=== PATIENT | female | born 1990 | race Caucasian/White ===

== ENCOUNTER 2022-08-05 09:20 | Outpatient (OUT) | payer OTHER, SELFPAY ==
[2022-08-05 09:56] LABS: Basophils Absolute Auto 0.1 10^3/uL (0.0-0.1); Basophils Percent Auto 0.9 % (0.2-2.0); Eosinophils Absolute Auto 0.2 10^3/uL (0.0-0.7); Eosinophils Percent Auto 3.6 % (0.9-7.0); Hematocrit 40.1 % (36.0-48.0); Hemoglobin 13.7 g/dL (12.0-16.0); Immature Granulocytes Abs Auto 0.01 10^3/uL (0.00-0.03); Immature Granulocytes Pct Auto 0.2 % (0.0-0.5); Lymphocytes Absolute Auto 1.6 10^3/uL (1.2-3.8); Lymphocytes Percent Auto 30.7 % (20.5-60.0); Mean Corpuscular HGB Conc 34.2 g/dL (29.9-35.2); Mean Corpuscular Hemoglobin 30.2 pg (26.7-34.0); Mean Corpuscular Volume 88.3 fL (81.0-99.0); Mean Platelet Volume 10.7 fL (9.5-13.5); Monocytes Absolute Auto 0.3 10^3/uL (0.3-0.8); Monocytes Percent Auto 5.7 % (1.7-12.0); Neutrophils Absolute Auto 3.1 10^3/uL (1.4-6.5); Neutrophils Percent Auto 58.9 % (43.0-75.0); Platelet Count 236 10^3/uL (150-450); Red Blood Count 4.54 10^6/uL (4.20-5.40); Red Cell Distribution Width 12.1 % (11.0-15.0); White Blood Count 5.3 10^3/uL (4.0-11.0)
[2022-08-05 22:14] LABS: Alanine Aminotransferase 18 U/L (14-59); Albumin Globulin Ratio 1.1; Albumin Level 3.8 g/dL (3.4-5.0); Alkaline Phosphatase 30 U/L (46-116); Anion Gap 13.1; Aspartate Amino Transferase 14 U/L (15-37); Bilirubin Total 0.2 mg/dL (0.2-1.0); Carbon Dioxide 25.2 mmol/L (21.0-32.0); Chloride 105 mmol/L (98-107); Chol HDL Ratio 3.2; Cholesterol 201 mg/dL (<=200); Estimated GFR (African America >60 (>=60); Estimated GFR (Non-African Ame >60 (>=60); Globulin 3.6 g/dL; Glucose 87 mg/dL (74-106); HDL Cholesterol 63 mg/dL (40-60); Potassium 4.3 mmol/L (3.5-5.1); Sodium 139 mmol/L (136-145); Total Protein 7.4 g/dL (6.4-8.2); Triglycerides 72 mg/dL (<=150); VLDL CHOLESTEROL 14.4 mg/dL
[2022-08-05 23:52] LABS: Estimated Average Glucose 94 mg/dL; Glycohemoglobin A1C 4.9 % (4.5-6.2)
== END 2022-08-05 09:21 ==
LOC: LAB 09:27
PROVIDERS: PCP Family Medicine; Visit Provider Family Medicine
DX: Z00.00 Encounter for general adult medical examination without abnormal findings (principal)
CPT/HCPCS: 36415; 80053; 80061; 83036; 83540; 84436; 84443; 84481; 85025

== ENCOUNTER 2023-07-07 22:43 | Emergency (ER) | payer OTHER, SELFPAY ==
[2023-07-07 22:49] VITALS: BP 137/96; PULSE 89; TEMP 37.6; O2SAT 99; BMI 26.4
--- NOTE | 2023-07-07 23:10 | ED_ITS ---
HPI - Skin/Abscess/Foreign Bdy General Chief complaint: Skin/Abscess/Foreign Body Stated complaint: Rash Time Seen by Provider: 07/07/23 23:10 Source: patient Mode of arrival: walk-in Limitations: no limitations History of Present Illness HPI narrative: This 32-year-old female presents for evaluation of a pruritic rash with hives on her back, chest buttocks and legs. The patient states she has been dealing with this rash for about 6 months. She denies any difficulty breathing or swallowing. We reviewed her medications. She is on several medications for the rash but none of them have particularly worked. Approximately one year ago she was started on a new antidepressant. She states that she does not take it as it is prescribed but takes it when she remembers. She had not taken it for several days and 2 day s ago took it for 2 days in a row. Today she broke out in this rash. She has no nausea or vomiting. She states that when she has taken Benadryl and Pepcid in the past that has caused her facial swelling and lip swelling. She is not having any facial swelling and lip swelling difficulty breathing or swallowing at this time. She has no nausea or vomiting. She denies the possibility of . She has no chest pain or shortness of breath. Related Data Allergies Allergy/AdvReac Type Severity Reaction Status Date / Time No Known Drug Allergies Allergy Verified 07/07/23 22:56 Review of Systems ROS Status of ROS 10 or more systems reviewed and unremark able except as noted in history and below Exam Narrative Exam Narrative: Nurses note and vital signs reviewed and patient is not hypoxic.Pressure mildly elevated at 137/96. General: The patient appears well and in no apparent distress. Patient is resting comfortably on cart. Skin: Large urticarial wheals on the patient's back with smaller urticarial wheals on the chest and abdomen. No sign of infestation. No cellulitis or abscess noted. Head: Normocephalic, atraumatic Eye: Normal conjunctiva, no drainage, EOMI. PERRL. No conjunctival injection Ears, Nose, Mouth, and Throat: oral mucosa is moist. no swelling of the tongue, uvula or pharyngeal soft tissues, no stridor appreciated, no pooling of secretions. Voice is normal Cardiovascular: Regular Rate and Rhythm Respiratory: Patient is in no distress, no accessory muscle use, lungs are clear to auscultation, no wheezing, rales or rhonchi Back: non-tender, no CVA tenderness bilaterally to percussion. GI: Normal bowel sounds, no tenderness to palpation, no masses appreciated. No rebound, guarding, or rigidity noted. Musculoskeletal: The patient has no evidence of calf tenderness, no pitting edema, symmetrical pulses noted bilaterally Neurological: A&O x4, normal speech Psychiatric: Cooperative Constitutional Vital Signs, click to edit/add: Last Vital Signs Temp 99.7 F 07/07/23 22:49 Pulse 89 07/07/23 22:49 Resp 20 07/07/23 22:49 BP 137/96 H 07/07/23 22:49 Pulse Ox 99 07/07/23 22:49 O2 Del Method Room Air 07/07/23 22:49 Course Vital Signs Vital signs: Vital Signs Temperature 99.7 F 07/07/23 22:49 Pulse Rate 89 07/07/23 22:49 Respiratory Rate 20 07/07/23 22:49 Blood Pressure 137/96 H 07/07/23 22:49 Pulse Oximetry 99 07/07/23 22:49 Oxygen Delivery Method Room Air 07/07/23 22:49 Temperature 99.7 F 07/07/23 22:49 Pulse Rate 89 07/07/23 22:49 Respiratory Rate 20 07/07/23 22:49 Blood Pressure 137/96 H 07/07/23 22:49 Pulse Oximetry 99 07/07/23 22:49 Oxygen Delivery Method Room Air 07/07/23 22:49 MDM - Skin/Abscess/Foreign Bdy MDM Narrative Medical decision making narrative: This 32-year-old female presents for evaluation of an urticarial rash that has been intermittently present for the past 6 months. Review of her medications she did start a antidepressants approximately one years ago that was new for her. She admits that she is not compliant with and does not take it on a daily basis. She had not taken it for several days and then to that for 2 days in a row and started having urticarial wheals and hives earlier today. She has no sign of angioedema. Lungs are clear, there is no swelling. She has been on multiple medications for this rash and states that many of them caused her symptoms become worse. An IV was placed and she was medicated with IV fluids and one 25 mg of IV Solu-Medrol. Reevaluation her hives are starting to resolve and her itching has improved. She requests to be discharged home at this time. I discussed the possibility that the medications that she is on her causing this rash and suggested that she refrain from taking the medications for 1-2 weeks if she can tolerate being off of them to see if her rash starts to improve. She was referred back to her family physician for further evaluation and treatment. She is in agreement with this plan. She was given a Medrol Dosepak prescription upon discharge. Discharge Plan Discharge Stand Alone Forms: Portal Instructions Chief Complaint: Skin/Abscess/Foreign Body Clinical Impression: Urticaria, Allergic reaction to drug Patient Disposition: Home, Self-Care Time of Disposition Decision: 00:42 Condition: Good Print Language: Iranian Instructions: Urticaria (ED) Referrals: Parker Guzman MD [Primary Care Provider] - 1 week
[2023-07-07] MEDS: METHYLPREDNISOLONE SOD SUCC PF 125 MG/2 ML VIAL IVP (23:51)
[2023-07-07] MEDS: 0.9 % SODIUM CHLORIDE 1,000 ML 1000 ML IV (23:51)
[2023-07-08 00:50] VITALS: BP 140/88; PULSE 82; O2SAT 98
== END 2023-07-08 00:50 | disposition home or self-care (01) ==
PROVIDERS: Emergency Provider Emergency Medicine; PCP Family Medicine
DX: L50.0 Allergic urticaria (principal); T43.205A Adverse effect of unspecified antidepressants, initial encounter
CPT/HCPCS: 96374; 99284; J2919

== ENCOUNTER 2023-07-09 08:20 | Outpatient (OUT) | payer OTHER, SELFPAY ==
--- OUTSIDE RECORDS SUMMARY | 2023-07-09 08:27 | XMS_ITS | CCD ---
Author Organization [facility] Care Team Providers Care Hospitality Coordinator Name Role Phone LADAN Guzman, DR ARCOS Attending Gabriella PICKERING ., DR ARCOS Consulting Gabriella PICKERING ., DR ARCOS Admitting Gabriella Contihn Brooke Unavailable Medications Current Medications Medication Drug Class(es) Dates Sig (Normalized) Sig (Original) 24 hr desvenlafaxine succinate 50 mg extended release oral tablet (1 source) Serotonin and Norepinephrine Reuptake Inhibitor take 1 tablet by mouth once daily Desvenlafaxine Succinate ER 50 MG take 1 tablet by mouth once daily Oral for 30 Days Active dexamethasone 1 mg/ml / neomycin 3.5 mg/ml / polymyxin b 56356 unt/ml ophthalmic suspension (1 source) Aminoglycoside Antibacterial, Polymyxin-class Antibacterial, Corticosteroid Start: 02-26-2023 take 1 drop(s) into the eye(s) four times daily Neomycin-Polymyxin- Dexameth 3.5-02482-5.1 1 drop into affected eye Ophthalmic Four times a day for 7 days Jan, Active Completed/Discontinued Medications Medication Drug Class(es) Dates Sig (Normalized) Sig (Original) cyclobenzaprine hydrochloride 10 mg oral tablet (1 source) Muscle Relaxant Start: 10-19-2021 take 1 tablet by mouth every eight hours Cyclobenzaprine HCl 10 MG 1 tab(s) Orally 3 times a day As needed for muscle stiffness Sep, Not-Taking/PRN gemmily 1-20 mg-mcg(24) capsule (1 source) Gemmily 1-20 MG-MCG(24) Oral for 28 Days Not-Taking/PRN lidocaine 25 mg/ml / prilocaine 25 mg/ml topical cream (1 source) Antiarrhythmic, Amide Local Anesthetic Lidocaine-Prilocaine 2.5-2.5 % External for 10 Days Not-Taking/PRN Toradol 30 mg/ml (1 source) Start: 10-19-2021 Toradol 30 mg/ml Sep, 30 mg Problems Problem Classification Problem Date Documented Date Episodic/Chronic Immunizations and screening for infectious disease (1 source) Encounter for screening for human papillomavirus (HPV); Translations: [ENC SCREENING HUMAN PAPILLOMAVIRUS] Onset: 06-15-2022 Episodic Inflammation; infection of eye (except that caused by tuberculosis or sexually transmitteddisease) (1 source) Hordeolum externum right upper eyelid Episodic Other screening for suspected conditions (not mental disorders or infectious disease) (4 sources) Encounter for screening for malignant neoplasm of cervix; Translations: [ENC SCREENING MALIG NEOPLASM CERV] Onset: 06-10-2022 Episodic Results Test Name Value Interpretation Reference Range Facil ity PAP ACOG PANEL 2: 30 to 65on 06-18-2022 . . Normal [facility] Comment on above: Result Comment: Performed at: WB Performed By: #### [id number] #### [facility] [address] [address] [address] Dawn Casey Age Gdln ACOG Testing 30-65 Normal [facility] Comment on above: Performed By: #### [id number] #### [facility] [address] [address] [address] Dawn Casey DIAGNOSIS: Comment Normal [facility] Comment on above: Result Comment: NEGATIVE FOR INTRAEPITHE LIAL LESION OR MALIGNANCY. Performed at: WB Performed By: #### [id number] #### [facility] [address] [address] [address] Dawn Casey HPV Aptima Negative Normal Negative [facility] Comment on above: Result Comment: This nucleic acid amplif ication test detects fourteen high-risk HPV types (16,18,31,33,35,39,45,51,52,56,58,59,66,68) without differentiation. Performed at: =G Performed By: #### [id number] #### [facility] [address] [address] [address] Dawn Casey HPV Genotype Reflex Comment Normal [facility] Comment on above: Result Comment: Criteria not met, HPV Ge notype not performed. Performed at: WB Performed By: #### [id number] #### [facility] [address] [place] [address] Dr. Dawn Casey Methodology: Comment Normal [facility] Comment on above: Result Comment: This liquid based ThinPr ep(R) pap test was screened with the use of an image guided system. Performed at: WB Performed By: #### [id number] #### [facility] [address] [place] [address] Dr. Dawn Casey Note: Comment Normal [facility] Comment on above: Result Comment: The Pap smear is a scree yaw test designed to aid in the detection of premalignant and malignant conditions of the uterine cervix. It is not a diagnostic procedure and should not be used as the sole means of detecting cervical cancer. Both false-positive and false-negative reports do occur. . Performed at: WB Performed By: #### [id number] #### [facility] [address] [place] [address] Dr. Dawn Casey Performed by: Comment Normal [facility] Comment on above: Result Comment: Eve Sidhu, [employer]otech nologist (ASCP) Performed at: WB Performed By: #### [id number] #### [facility] [address] [place] [address] Dr. Dwan Casey Specimen adequacy: Comment Normal [facility] Comment on above: Result Comment: Satisfactory for evaluat ion. Endocervical and/or squamous metaplastic cells (endocervical component) are present. Performed at: WB Performed By: #### [id number] #### [facility] [address] [place] [address] Dr. Dawn Casey Vital Signs Date Time Vital Sign Value Performing Clinician Facility 02-26-2023 10:20-0500 Body height 160.02 cm Brooke Mathew Other [facility] Other 02-26-2023 10:20-0500 Body mass index (BMI) [Ratio] 24.8 kg/m2 Brooke Mathew Other [facility] Other 02-26-2023 10:20-0500 Body temperature 97 [degF] Brooke Mathew Other [facility] Other 02-26-2023 10:20-0500 Body weight 63.5 kg Brooke Mathew Other [facility] Other 02-26-2023 10:20-0500 Respiratory rate 18 /min Brooke Mathew Other [facility] Other 02-26-2023 10:20-0500 SaO2% (BldA) [Mass fraction] 99 % Brooke Mathew Other [facility] Other Encounters Encounter Date Encounter Type Care Provider Facility Start: 02-26-2023 End: 02-26-2023 ambulatory Brooke Mathew Other [facility] Other Start: 02-26-2023 Office outpatient vi sit 15 minutes Brooke Mathew [facility] Start: 06-10-2022 End: 06-10-[address] ISRRAEL PICKERING . Facility: Payers Date Payer Category Payer Unknown [id number] 1958 Self-pay [id number] Private Health Insurance [facility] [id number] Social History Date Type Detail Facility Unknown if ever smoked [facility] Other Sex Assigned At Sex Assigned At Bir th [facility] Other Evaluation note 02-26-2023 Note Date & Type Note Facility 02-26-2023 Evaluation note Encounter Date Diagnosis Assessment Notes Jan, Hordeolum externum of right upper eyelid (ICD-10 - H00.011) Styes are self-limiting and will go away with supportive treatment. Drops as directed. Moist, warm compress to eye for 15 minutes several times a day, wash eyelids gently with mild no-tear soap (e.g. Johnsons baby wash). Avoid wearing eye makeup at this time. Start using drops as directed on the bottle. Do not touch eye directly with eye drop bottle, wipe off bottle after every use, do not share eye drop bottles. Follow up with PCP or eye doctor if symptoms persist for more then 1 week or change. Immediate eval if eye becomes red, swollen, drainage, vision changes, fever, headache, N/V, or any other new or concerning symptom. Patient verbalizes understandig and is agreeable to treatment plan. [facility] Other Summary Purpose Family History No Family History Records Found Advance Directives No Advanced Directives Records Found Additional Source Comments INFORMATION SOURCE (unrecogn ized section and content) DATE CREATED AUTHOR 06/18/2022 [facility] REASON FOR VISIT (unrecogniz ed section and content) eye swelling FOR RECORDS PERTAINING TO PATIENTS WHO ARE OR HAVE BEEN ENROLLED IN A CHEMICAL DEPENDENCY/SUBSTANCEABUSE PROGRAM, SOME INFORMATION MAY BE OMITTED. This clinical summary was aggregated from multiple sources. Caution should be exercised in using it in the provision of clinical care. This summary normalizes information from multiple sources, and as a consequence, information in this document may materially change the coding, format and clinical context of patient data. In addition, data may be omitted in some cases. CLINICAL DECISIONS SHOULD BE BASED ON THE PRIMARY CLINICAL RECORDS. [facility] [employer] [facility]. provides no warranty or guarantee of the accuracy or completeness of information in this document.
[2023-07-09 09:23] LABS: Erythrocyte Sedimentation Rate 8 mm/hr (<=20)
[2023-07-09 09:24] LABS: Basophils Percent Auto 0.1 % (0.2-2.0); Eosinophils Percent Auto 0.1 % (0.9-7.0); Hematocrit 39.2 % (36.0-48.0); Hemoglobin 13.6 g/dL (12.0-16.0); Immature Granulocytes Abs Auto 0.08 10^3/uL (0.00-0.03); Immature Granulocytes Pct Auto 0.4 % (0.0-0.5); Lymphocytes Absolute Auto 2.7 10^3/uL (1.2-3.8); Lymphocytes Percent Auto 14.7 % (20.5-60.0); Mean Corpuscular HGB Conc 34.7 g/dL (29.9-35.2); Mean Corpuscular Hemoglobin 30.2 pg (26.7-34.0); Mean Corpuscular Volume 87.1 fL (81.0-99.0); Mean Platelet Volume 10.5 fL (9.5-13.5); Monocytes Absolute Auto 0.9 10^3/uL (0.3-0.8); Monocytes Percent Auto 4.8 % (1.7-12.0); Neutrophils Absolute Auto 14.7 10^3/uL (1.4-6.5); Neutrophils Percent Auto 79.9 % (43.0-75.0); Platelet Count 293 10^3/uL (150-450); Red Cell Distribution Width 12.2 % (11.0-15.0); White Blood Count 18.4 10^3/uL (4.0-11.0)
[2023-07-09 09:44] LABS: Estimated Average Glucose 100 mg/dL; Glycohemoglobin A1C 5.1 % (4.5-6.2)
[2023-07-09 10:12] LABS: Alanine Aminotransferase 22 U/L (14-59); Albumin Globulin Ratio 1.2; Albumin Level 3.9 g/dL (3.4-5.0); Alkaline Phosphatase 50 U/L (46-116); Aspartate Amino Transferase 18 U/L (15-37); BUN Creatinine Ratio 18.8; Bilirubin Total 0.8 mg/dL (0.2-1.0); C Reactive Protein 0.82 mg/dL (<=0.50); Carbon Dioxide 22.8 mmol/L (21.0-32.0); Chloride 104 mmol/L (98-107); Chol HDL Ratio 2.6; Cholesterol 174 mg/dL (<=200); Estimated GFR (African America >60 (>=60); Estimated GFR (Non-African Ame >60 (>=60); Free T3 3.53 pg/mL (2.18-3.98); Globulin 3.2 g/dL; Glucose 98 mg/dL (74-106); HDL Cholesterol 66 mg/dL (40-60); Potassium 3.8 mmol/L (3.5-5.1); Sodium 139 mmol/L (136-145); Thyroid Stimulating Hormone 3.248 uIU/mL (0.358-3.740); Total Protein 7.1 g/dL (6.4-8.2); Triglycerides 47 mg/dL (<=150); Uric Acid 4.1 mg/dL (2.6-6.0); VLDL CHOLESTEROL 9.4 mg/dL
[2023-07-10 04:47] LABS: Antistreptolysin O Ab 298.6 IU/mL (0.0-200.0); Rheumatoid Factor (RF) <10.0 IU/mL (<14.0)
[2023-07-10 12:09] LABS: Insulin 9.2 uIU/mL (2.6-24.9)
[2023-07-12 10:07] LABS: Antinuclear Antibodies, IFA Negative (.)
[2023-07-12 18:08] LABS: Thyroglobulin Antibody <1.0 IU/mL (0.0-0.9); Thyroid Peroxidase (TPO) Ab <9 IU/mL (0-34)
== END 2023-07-09 08:21 | disposition home or self-care (01) ==
PROVIDERS: PCP Family Medicine; Visit Provider Family Medicine
DX: L50.9 Urticaria, unspecified (principal); R73.09 Other abnormal glucose; D64.9 Anemia, unspecified; E55.9 Vitamin D deficiency, unspecified
CPT/HCPCS: 36415; 80053; 80061; 82306; 82784; 82785; 83036; 83525; 83540; 84432; 84436; 84443; 84481; 84550; 85025; 85652; 86038; 86060; 86140; 86376; 86431; 86800

== ENCOUNTER 2023-08-13 12:35 | Outpatient (OUT) | payer OTHER, SELFPAY ==
--- OUTSIDE RECORDS SUMMARY | 2023-08-13 12:48 | XMS_ITS | CCD ---
Author Organization [facility] Care Team Providers Care Fitter Mechanic Name Role Phone LADAN Guzman, DR ARCOS Attending Gabriella PICKERING ., DR ARCOS Consulting Gabriella PICKERING ., DR ARCOS Admitting Brooke Huff Unavailable Medications Current Medications Medication Drug Class(es) Dates Sig (Normalized) Sig (Original) 24 hr desvenlafaxine succinate 50 mg extended release oral tablet (1 source) Serotonin and Norepinephrine Reuptake Inhibitor take 1 tablet by mouth once daily Desvenlafaxine Succinate ER 50 MG take 1 tablet by mouth once daily Oral for 30 Days Active dexamethasone 1 mg/ml / neomycin 3.5 mg/ml / polymyxin b [id number] unt/ml ophthalmic suspension (1 source) Aminoglycoside Antibacterial, Polymyxin-class Antibacterial, Corticosteroid Start: 02-26-2023 take 1 drop(s) into the eye(s) four times daily Neomycin-Polymyxin- Dexameth 3.5-80089-4.1 1 drop into affected eye Ophthalmic Four [...] 30 to 65on 06-18-2022 . . Normal [facility] Comment on above: Result Comment: Performed at: WB Performed By: #### [id number] #### [facility] [address] [address] [address] Dawn Casey Age Gdln ACOG Testing 30-65 Normal [facility] Comment on above: Performed By: #### [id number] #### [facility] [address] [address] [address] Dawn Casey DIAGNOSIS: Comment Normal [facility] Comment on above: Result Comment: NEGATIVE FOR INTRAEPITHE LIAL LESION OR MALIGNANCY. Performed at: WB Performed By: #### [id number] #### [facility] [address] [address] [address] Dawn Casey HPV Aptima Negative Normal [facility] Comment on above: Result Comment: This nucleic acid amplif ication test detects fourteen high-risk HPV types (16,18,31,33,35,39,45,51,52,56,58,59,66,68) without differentiation. Performed at: =G Performed By: #### [id number] #### [facility] [address] [address] [address] Dawn Casey HPV Genotype Reflex Comment Normal [facility] Comment on above: Result Comment: Criteria not met, HPV Ge notype not performed. Performed at: WB Performed By: #### [id number] #### [facility] [address] [place] [address] Dr. Dawn Casey Methodology: Comment [facility] Comment on above: Result Comment: This liquid based ThinPr ep(R) pap test was screened with the use of an image guided system. Performed at: WB Performed By: #### [id number] #### [facility] [address] [place] [address] Dr. Dawn Casey Note: Comment Normal [facility] Comment on above: Result Comment: The Pap smear is a scree yaw test designed to aid in the detection of premalignant and malignant conditions of the uterine cervix. It is not a diagnostic procedure and should not be used as the sole means of detecting cervical cancer. Both false-positive and false-negative reports do occur. . Performed at: WB Performed By: #### [id number] #### [facility] [address] [place] [address] Dr. Dawn Casey Performed by: Comment Normal [facility] Comment on above: Result Comment: Eve Sidhu, Cytotech nologist (ASCP) Performed at: WB Performed By: #### [id number] #### [facility] [address] [place] [address] Dr. Dawn Casey Specimen adequacy: Comment [facility] Comment on above: Result Comment: Satisfactory for evaluat ion. Endocervical and/or squamous metaplastic cells (endocervical component) are present. Performed at: WB Performed By: #### [id number] #### [facility] [address] [place] [address] Dr. Dawn Casey Vital Signs Date Time Vital Sign Value Performing Clinician Facility 02-26-2023 10:20-0500 Body height 160.02 cm Brooke Mathew Other [facility] Other 02-26-2023 10:20-0500 Body mass index (BMI) [Ratio] 24.8 kg/m2 Brooke Mathew Other [facility] Other 02-26-2023 10:20-0500 Body temperature 97 [degF] Brooke Mathew Other [facility] Other 02-26-2023 10:20-0500 Body weight 63.5 kg Brooke Mathew Other [facility] Other 02-26-2023 10:20-0500 Respiratory rate 18 /min Brooke Mathew Other [facility] Other 02-26-2023 10:20-0500 SaO2% (BldA) [Mass fraction] 99 % Brooke Mathew Other [facility] Other Encounters Encounter Date Encounter Type Care Provider Facility Start: 02-26-2023 End: 02-26-2023 ambulatory Brooke Mathew Other [facility] Other Start: 02-26-2023 Office outpatient vi sit 15 minutes Brooke Mathew [facility] Start: 06-10-2022 End: 06-10-[address] ISRRAEL PICKERING . Facility: Payers Date Payer Category Payer Unknown [id number] 1958 Self-pay [id number] Private Health Insurance [facility] [id number] Social History Date Type Detail Facility Unknown if ever smoked [facility] Other Sex Assigned At Sex Assigned At Bir th [facility] Other Evaluation note 02-26-2023 Note Date & [...] understandig and is agreeable to treatment plan. [facility] Other Summary Purpose Family History No Family History Records Found Advance Directives No Advanced Directives Records Found Additional Source Comments INFORMATION SOURCE (unrecogn ized section and content) DATE CREATED AUTHOR 06/18/2022 [facility] REASON FOR VISIT (unrecogniz ed section and [...] BE BASED ON THE PRIMARY CLINICAL RECORDS. [employer] [facility]. provides no warranty or guarantee of the accuracy or completeness of information in this document.
[2023-08-13 13:35] LABS: Eosinophils Absolute Auto 0.1 10^3/uL (0.0-0.7); Eosinophils Percent Auto 1.3 % (0.9-7.0); Hematocrit 38.7 % (36.0-48.0); Hemoglobin 13.3 g/dL (12.0-16.0); Immature Granulocytes Abs Auto 0.02 10^3/uL (0.00-0.03); Immature Granulocytes Pct Auto 0.2 % (0.0-0.5); Lymphocytes Absolute Auto 1.9 10^3/uL (1.2-3.8); Lymphocytes Percent Auto 21.7 % (20.5-60.0); Mean Corpuscular HGB Conc 34.4 g/dL (29.9-35.2); Mean Corpuscular Hemoglobin 30.4 pg (26.7-34.0); Mean Corpuscular Volume 88.6 fL (81.0-99.0); Mean Platelet Volume 10.4 fL (9.5-13.5); Monocytes Absolute Auto 0.4 10^3/uL (0.3-0.8); Monocytes Percent Auto 4.6 % (1.7-12.0); Neutrophils Absolute Auto 6.3 10^3/uL (1.4-6.5); Neutrophils Percent Auto 72.2 % (43.0-75.0); Platelet Count 263 10^3/uL (150-450); Red Blood Count 4.37 10^6/uL (4.20-5.40); Red Cell Distribution Width 12.3 % (11.0-15.0); White Blood Count 8.7 10^3/uL (4.0-11.0)
[2023-08-13 14:01] LABS: Erythrocyte Sedimentation Rate 15 mm/hr (<=20)
[2023-08-16 12:08] LABS: Anti-dsDNA Antibodies <1 IU/mL (0-9)
== END 2023-08-13 12:36 | disposition home or self-care (01) ==
LOC: LAB 12:38
PROVIDERS: PCP Family Medicine; Visit Provider Family Medicine
DX: R76.8 Other specified abnormal immunological findings in serum (principal)
CPT/HCPCS: 36415; 85025; 85652; 86060; 86225

== ENCOUNTER 2023-09-30 21:46 | Emergency (ER) | payer OTHER, SELFPAY ==
[2023-09-30 21:50] VITALS: BP 135/94; PULSE 106; TEMP 36.8; O2SAT 100; BMI 27.5
--- OUTSIDE RECORDS SUMMARY | 2023-09-30 21:51 | XMS_ITS | CCD ---
Author Organization [facility] Care Team Providers Care Drawing Kiln Operator Name Role Phone LADAN Guzman, DR ARCOS Attending Unavailchance PICKERING ., DR ARCOS Consulting Gabriella PICKERING ., DR ARCOS Admitting Unavailabl Brooke Moreno Unavailable SHANTE BREWSTER Attending Unavailable Medications Current Medications Medication Drug Class(es) Dates Sig (Normalized) Sig (Original) 24 hr desvenlafaxine succinate 50 mg extended release oral tablet (1 source) Serotonin and Norepinephrine Reuptake Inhibitor take 1 tablet by mouth once daily Desvenlafaxine Succinate ER 50 MG take 1 tablet by mouth once daily Oral for 30 Days Active dexamethasone 1 mg/ml / neomycin 3.5 mg/ml / polymyxin b 73146 unt/ml ophthalmic suspension (1 source) Aminoglycoside Antibacterial, Polymyxin-class Antibacterial, Corticosteroid Start: 02-26-2023 take 1 drop(s) into the eye(s) four times daily Neomycin-Polymyxin- Dexameth 3.5-36565-1.1 1 drop into affected eye Ophthalmic Four [...] 30 to 65on 06-18-2022 . . Normal [facility] Comment on above: Result Comment: Performed at: WB Performed By: #### [id number] #### [facility] [address] [address] [address] Dawn Casey Age Gdln ACOG Testing 30-65 Normal [facility] Comment on above: Performed By: #### [id number] #### [facility] [address] [address] [address] Dawn Casey DIAGNOSIS: Comment Normal [facility] Comment on above: Result Comment: NEGATIVE FOR INTRAEPITHE LIAL LESION OR MALIGNANCY. Performed at: WB Performed By: #### [id number] #### [facility] [address] [address] [address] Dawn Casey HPV Aptima Negative Normal Negative [facility] Comment on above: Result Comment: This nucleic acid amplif ication test detects fourteen high-risk HPV types (16,18,31,33,35,39,45,51,52,56,58,59,66,68) without differentiation. Performed at: =G Performed By: #### [id number] #### [facility] [address] [address] [address] Dawn Casey HPV Genotype Reflex Comment Normal [facility] Comment on above: Result Comment: Criteria not met, HPV Ge notype not performed. Performed at: WB Performed By: #### [id number] #### [facility] [address] [place] [address] Dr. Dawn Casey Methodology: Comment Normal [facility] Comment on above: Result Comment: This liquid based ThinPr ep(R) pap test was screened with the use of an image guided system. Performed at: WB Performed By: #### [id number] #### [facility] [address] [place] [address] Dr. Dawn Casey Note: Comment Normal [facility] Comment on above: Result Comment: The Pap smear is a scree yaw test designed to aid in the detection of premalignant and malignant conditions of the uterine cervix. It is not a diagnostic procedure and should not be used as the sole means of detecting cervical cancer. Both false-positive and false-negative reports do occur. . Performed at: WB Performed By: #### [id number] #### [facility] [address] [place] [address] Dr. Dawn Casey Performed by: Comment Normal [facility] Comment on above: Result Comment: [employer] nologist (ASCP) Performed at: WB Performed By: #### [id number] #### [facility] [address] [place] [address] Dr. Dawn Casey Specimen adequacy: Comment Normal [facility] Comment on above: Result Comment: Satisfactory for evaluat ion. Endocervical and/or squamous metaplastic cells (endocervical component) are present. Performed at: WB Performed By: #### [id number] #### [facility] [address] [place] [address] Dr. Dawn Casey Vital Signs Date Time Vital Sign Value Performing Clinician Facility 02-26-2023 10:20-0500 Body height 160.02 cm Brooke Mathew Other [facility] Other 02-26-2023 10:20-0500 Body mass index (BMI) [Ratio] 24.8 kg/m2 Brooke Mathew Other [facility] Other 02-26-2023 10:20-0500 Body temperature 97 [degF] Brooke Mathew Other [facility] Other 02-26-2023 10:20-0500 Body weight 63.5 kg Brooke Mathew Other [facility] Other 02-26-2023 10:20-0500 Respiratory rate 18 /min Brooke Mathew Other [facility] Other 02-26-2023 10:20-0500 SaO2% (BldA) [Mass fraction] 99 % Brooke Mathew Other [facility] Other Encounters Encounter Date Encounter Type Care Provider Facility Start: 09-08-2023 End: 09-08-2023 ambulatory SHANTE BREWSTER Not Available Start: 02-26-2023 End: 02-26-2023 ambulatory Brooke Mathew Other [facility] Other Start: 02-26-2023 Office outpatient vi sit 15 minutes Brooke Mathew [facility] Start: 06-10-2022 End: 06-10-[address] ISRRAEL PICKERING . Facility: Payers Date Payer Category Payer Private Health Insurance EBM [id number] 1991 Unknown [id number] 1991 Unknown [id number] 1958 Self-pay [id number] Social History Date Type Detail Facility Unknown if ever smoked [facility] Other Sex Assigned At Sex Assigned At Bir th [facility] Other Evaluation note 02-26-2023 Note Date & [...] understandig and is agreeable to treatment plan. [facility] Other Summary Purpose Family History No Family History Records FoundNo Family History Records Found Advance Directives No Advanced Directives Records FoundNo Advanced Directives Records Found Additional Source Comments INFORMATION SOURCE (unrecogn ized section and content) DATE CREATED AUTHOR 06/18/2022 [facility] DATE CREATED AUTHOR AUTHOR'S ORGANKEYSHA ATION 09/15/2023 [facility] EPIC REASON FOR VISIT (unrecogniz ed section and [...] BE BASED ON THE PRIMARY CLINICAL RECORDS. [email or web address] provides no warranty or guarantee of the accuracy or completeness of information in this document.
--- NOTE | 2023-09-30 22:07 | ED_ITS ---
HPI HPI - General Adult General Chief complaint: Recheck/Abnormal Lab/Rx Stated complaint: FACIAL SWELLING/HIVES Time Seen by Provider: 09/30/23 21:54 Source: patient Mode of arrival: walk-in Limitations: no limitations History of Present Illness HPI narrative: 32-year-old female presents to the emergency for chief complaint of needing blood work done. She has been having issues with angioedema since January, intermittently. She is seeing an tool machine set up operator and he told her to go to the hospital and get certain blood work done when she has swelling. She has swelling to the right upper lip primarily. No tongue swelling or difficulty breathing or swallowing. She told the nurse that she does not want treatment for the swelling, she wants to get the blood work done. Related Data Home Medications ?Medication ?Instructions ?Recorded ?Confirmed cetirizine 10 mg tablet mg 09/30/23 hydroxyzine pamoate 25 mg capsule mg 09/30/23 montelukast 10 mg tablet mg 09/30/23 Allergies Allergy/AdvReac Type Severity Reaction Status Date / Time doxepin Allergy Irritable Verified 09/30/23 22:03 famotidine [From Pepcid] Allergy facial Verified 09/30/23 22:03 swelling Opioid HPI Opioid Management Most Recent Opioid Data: No Data to Display Review of Systems ROS Narrative A ten point review of systems is negative except as noted above. Exam Narrative Exam Narrative: Nurses note and vital signs reviewed and patient is not hypoxic. General: The patient appears well and in no apparent distress. Patient is resting comfortably on cart. Skin: Warm, dry, no pallor noted. There is no rash noted. Head: Normocephalic, atraumatic Eye: Normal conjunctiva, no drainage Ears, Nose, Mouth, and Throat: oral mucosa is moist. Nares patent. Mouth without vesicles. Tongue not swollen. Right upper lip is swollen. She is handling her oral secretions well. Cardiovascular: Regular Rate and Rhythm Respiratory: Patient is in no distress, no accessory muscle use, lungs are clear to auscultation, no wheezing, rales or rhonchi Back: non-tender GI: Soft and nontender Musculoskeletal: The patient has no evidence of calf tenderness, no pitting edema, symmetrical pulses noted bilaterally Neurological: Awake and alert Psychiatric: Cooperative Constitutional Vital Signs, click to edit/add: Last Vital Signs Temp 98.3 F 09/30/23 21:50 Pulse 106 H 09/30/23 21:50 Resp 90 H 09/30/23 21:50 BP 135/94 H 09/30/23 21:50 Pulse Ox 100 09/30/23 21:50 O2 Del Method Room Air 09/30/23 21:50 Course Vital Signs Vital signs: Vital Signs Temperature 98.3 F 09/30/23 21:50 Pulse Rate 106 H 09/30/23 21:50 Respiratory Rate 90 H 09/30/23 21:50 Blood Pressure 135/94 H 09/30/23 21:50 Pulse Oximetry 100 09/30/23 21:50 Oxygen Delivery Method Room Air 09/30/23 21:50 Temperature 98.3 F 09/30/23 21:50 Pulse Rate 106 H 09/30/23 21:50 Respiratory Rate 90 H 09/30/23 21:50 Blood Pressure 135/94 H 09/30/23 21:50 Pulse Oximetry 100 09/30/23 21:50 Oxygen Delivery Method Room Air 09/30/23 21:50 Medical Decision Making [facility] Narrative Medical decision making narrative: Blood work is ordered and pending and she will follow-up with her tool machine set up operator as an outpatient. Differential Diagnosis Differential Diagnosis: Angioedema, nonspecific allergy Discharge Plan Discharge Stand Alone Forms: Portal Instructions Chief Complaint: Recheck/Abnormal Lab/Rx Clinical Impression: Angioedema Patient Disposition: Home, Self-Care Time of Disposition Decision: 22:53 Condition: Good Mode of Transportation: Private Vehicle Prescriptions / Home Meds: No Action cetirizine 10 mg tablet montelukast 10 mg tablet hydroxyzine pamoate 25 mg capsule Print Language: Nigerian Instructions: Angioedema (ED) Additional Instructions: Follow-up with your tool machine set up operator. Referrals: Parker Guzman MD [Primary Care Provider] - 1 week
[2023-09-30 22:59] VITALS: PULSE 68; O2SAT 99
[2023-09-30 23:33] LABS: Thyroid Stimulating Hormone 4.004 uIU/mL (0.358-3.740)
[2023-10-02 04:08] LABS: Immunoglobulin G, Qn 1031 mg/dL (586-1602)
== END 2023-09-30 22:59 | disposition home or self-care (01) ==
PROVIDERS: Emergency Provider Emergency Medicine; PCP Family Medicine
DX: T78.3XXA Angioneurotic edema, initial encounter (principal)
CPT/HCPCS: 36415; 82784; 82785; 83519; 84443; 86376; 86800; 99283

== ENCOUNTER 2023-10-15 12:05 | Outpatient (OUT) | payer OTHER, SELFPAY | END 2023-10-15 12:06 | disposition home or self-care (01) | LOC: LAB 12:06 | PROVIDERS: PCP Family Medicine | DX: D89.40 Mast cell activation, unspecified (principal) | CPT/HCPCS: 36415; 81050; 82542; 82570 ==

== ENCOUNTER 2023-11-11 10:11 | Outpatient (OUT) | payer OTHER, SELFPAY ==
--- OUTSIDE RECORDS SUMMARY | 2023-11-11 10:14 | XMS_ITS | CCD ---
Author Organization [facility] Care Team Providers Care Stock Preparation Supervisor Name Role Phone LADAN ., DR ARCOS Attending Unavailchance PICKERING ., DR ARCOS Consulting Gabriella PICKERING ., DR ARCOS Admitting UnavailBrooke Tucker Unavailable SHANTE BREWSTER Attending Unavailable Medications Current [...] / neomycin 3.5 mg/ml / polymyxin b 05509 unt/ml ophthalmic suspension (1 source) Aminoglycoside Antibacterial, Polymyxin-class Antibacterial, Corticosteroid Start: 02-26-2023 take 1 drop(s) into the eye(s) four times daily Neomycin-Polymyxin- Dexameth 3.5-71489-9.1 1 drop into affected eye Ophthalmic Four [...] 30 to 65on 06-18-2022 . . Normal [facility] Comment on above: Result Comment: Performed at: WB Performed By: #### [id number] #### [facility] [address] [address] [address] Dawn Casey Age Gdln ACOG Testing 30-65 Normal [facility] Comment on above: Performed By: #### [id number] #### [facility] [address] [address] [address] Dawn Casey DIAGNOSIS: Comment Normal [facility] Comment on above: Result Comment: NEGATIVE FOR INTRAEPITHE LIAL LESION OR MALIGNANCY. Performed at: WB Performed By: #### [id number] #### [facility] [address] [address] [address] Dawn Casey HPV Aptima Negative Normal Negative [facility] Comment on above: Result Comment: This nucleic acid amplif ication test detects fourteen high-risk HPV types (16,18,31,33,35,39,45,51,52,56,58,59,66,68) without differentiation. Performed at: =G Performed By: #### [id number] #### [facility] [address] [address] [address] Dawn Casey HPV Genotype Reflex Comment Normal [facility] Comment on above: Result Comment: Criteria not met, HPV Ge notype not performed. Performed at: WB Performed By: #### [id number] #### [facility] [address] [place] [address] Dr. Dawn Casey Methodology: Comment Normal [facility] Comment on above: Result Comment: This liquid based ThinPr ep(R) pap test was screened with the use of an image guided system. Performed at: WB Performed By: #### [id number] #### [facility] [address] [place] [address] Dr. Dawn Casey Note: Comment Normal [facility] Comment on above: Result Comment: The Pap smear is a scree yaw test designed to aid in the detection of premalignant and malignant conditions of the uterine cervix. It is not a diagnostic procedure and should not be used as the sole means of detecting cervical cancer. Both false-positive and false-negative reports do occur. . Performed at: WB Performed By: #### [id number] #### [facility] [address] [place] [address] Dr. Dawn Casey Performed by: Comment Normal [facility] Comment on above: Result Comment: [employer] nologist (ASCP) Performed at: WB Performed By: #### [id number] #### [facility] [address] [place] [address] Dr. Dawn Casey Specimen adequacy: Comment Normal [facility] Comment on above: Result Comment: Satisfactory for evaluat ion. Endocervical and/or squamous metaplastic cells (endocervical component) are present. Performed at: WB Performed By: #### [id number] #### [facility] [address] [place] [address] Dr. Dawn Casey Vital Signs Date Time Vital Sign Value Performing Clinician Facility 02-26-2023 10:20-0500 Body height 160.02 cm Brooke Mathew Other [facility] Other 02-26-2023 10:20-0500 Body mass index (BMI) [Ratio] 24.8 kg/m2 Brooke Mathew Other [facility] Other 02-26-2023 10:20-0500 Body temperature 97 [degF] Brooke Mathew Other [facility] Other 02-26-2023 10:20-0500 Body weight 63.5 kg Brooke Mathew Other [facility] Other 02-26-2023 10:20-0500 Respiratory rate 18 /min Brooke Mathew Other [facility] Other 02-26-2023 10:20-0500 SaO2% (BldA) [Mass fraction] 99 % Brooke Mathew Other [facility] Other Encounters Encounter Date Encounter Type Care Provider Facility Start: 09-08-2023 End: 09-08-2023 ambulatory SHANTE BREWSTER Not Available Start: 02-26-2023 End: 02-26-2023 ambulatory Brooke Mathew Other [facility] Other Start: 02-26-2023 Office outpatient vi sit 15 minutes Brooke Mathew [facility] Start: 06-10-2022 End: 06-10-[address] ISRRAEL PICKERING . Facility: Payers Date Payer Category Payer Private Health Insurance EBM [id number] 1990 Unknown [id number] 1990 Unknown [id number] 1958 Self-pay [id number] Social History Date Type Detail Facility Unknown if ever smoked [facility] Other Sex Assigned At Sex Assigned At Bir th [facility] Other Evaluation note 02-26-2023 Note Date & [...] understandig and is agreeable to treatment plan. [facility] Other Summary Purpose Family History No Family History Records FoundNo Family History Records Found Advance Directives No Advanced Directives Records FoundNo Advanced Directives Records Found Additional Source Comments INFORMATION SOURCE (unrecogn ized section and content) DATE CREATED AUTHOR 06/18/2022 [facility] DATE CREATED AUTHOR AUTHOR'S ORGANKEYSHA ATION 09/15/2023 [facility] EPIC REASON FOR VISIT [...] BE BASED ON THE PRIMARY CLINICAL RECORDS. [email or web address] provides no warranty or guarantee of the accuracy or completeness of information in this document.
[2023-11-11 11:08] LABS: Free T4 0.81 ng/dL (0.76-1.46)
[2023-11-11 11:11] LABS: Free T3 3.28 pg/mL (2.18-3.98); Thyroid Stimulating Hormone 1.536 uIU/mL (0.358-3.740)
== END 2023-11-11 10:12 | disposition home or self-care (01) ==
PROVIDERS: PCP Family Medicine; Visit Provider Family Medicine
DX: E03.9 Hypothyroidism, unspecified (principal)
CPT/HCPCS: 36415; 84439; 84443; 84481

== ENCOUNTER 2024-08-03 20:08 | Outpatient (REF) | payer OTHER, SELFPAY ==
--- OUTSIDE RECORDS SUMMARY | 2024-08-03 20:12 | XMS_ITS | CCD ---
Author Organization [facility] Care Team Providers Care Elementary Instructional Coach Name Role Phone LADAN Guzman, DR ARCOS Attending Gabriella PICKERING ., DR ARCOS Consulting Gabriella PICKERING ., DR ARCOS Admitting Brooke Huff Unavailable SHANTE JAMES Attending Unavailable SHANTE JAMES Attending Unavailable Unavailable Primary Care Provider Gabriella alberts Allergies Allergy Classification Reported Allergen(s) Allergy Type Date of Onset Reaction(s) Facility (3 sources) Doxepin Drug Allergy 09-08-2023 [facility] Medications Current Medications Medication Drug Class(es) Dates Sig (Normalized) Sig (Original) cetirizine hydrochloride 10 mg oral tablet (5 sources) Histamine-1 Receptor Antagonist Start: 09-08-2023 End: 11-09-2024 take 2 tablets by mouth in the morning cetirizine (ZyrTEC) 10 MG tablet Indications: Chronic Urticaria , L50 Chronic Urticaria Take 2 tablets (20 mg) by mouth in the morning and 2 tablets (20 mg) before bedtime. 360 tablet 3 11/10/2023 11/09/2024 Active 24 hr desvenlafaxine succinate 50 mg extended release oral tablet (1 source) Serotonin and Norepinephrine Reuptake Inhibitor take 1 tablet by mouth once daily Desvenlafaxine Succinate ER 50 MG take 1 tablet by mouth once daily Oral for 30 Days Active dexamethasone 1 mg/ml / neomycin 3.5 mg/ml / polymyxin [id number] unt/ml ophthalmic suspension (1 source) Aminoglycoside Antibacterial, Polymyxin-class Antibacterial, Corticosteroid Start: 02-26-2023 take 1 drop(s) into the eye(s) four times daily Neomycin-Polymyxin- Dexameth [id number] 1 drop into affected eye Ophthalmic Four times a day for 7 days Jan, Active [id number] 0.3 ml EPINEPHrine 1 mg/ml auto-injector (3 sources) alpha-Adrenergic Agonist, beta-Adrenergic Agonist, Catecholamine Start: 09-08-2023 End: 09-07-2024 EPINEPHrine (Epipen) 0.3 MG/0.3ML injection syringe Indications: Mast cell activation syndrome (CMS/HCC) , Chronic idiopathic urticaria Inject 0.3 mL (0.3 mg) as directed if needed for anaphylaxis Call 911 after use. 2 each 1 09/08/2023 09/07/2024 Active hydrOXYzine pamoate 25 mg oral capsule (5 sources) Antihistamine Start: 09-08-2023 End: 11-09-2024 take 1 capsule by mouth at bedtime hydrOXYzine pamoate (Vistaril) 25 MG capsule Indications: Chronic idiopathic urticaria , Mast cell activation syndrome (CMS/HCC) Take 1 capsule (25 mg) by mouth at bedtime 90 capsule 3 11/10/2023 11/09/2024 Active montelukast 10 mg oral tablet (5 sources) Leukotriene Receptor Antagonist Start: 09-08-2023 End: 11-09-2024 take 1 tablet by mouth at bedtime montelukast (Singulair) 10 MG tablet Indications: Chronic idiopathic urticaria , Mast cell activation syndrome (CMS/HCC) Take 1 tablet (10 mg) by mouth at bedtime 90 tablet 3 11/10/2023 11/09/2024 Active Completed/Discontinued Medications Medication Drug Class(es) Dates Sig (Normalized) Sig (Original) cyclobenzaprine hydrochloride 10 mg oral tablet (1 source) Muscle Relaxant Start: 10-19-2021 take 1 tablet by mouth every eight hours Cyclobenzaprine HCl 10 MG 1 tab(s) Orally 3 times a day As needed for muscle stiffness Sep, Not-Taking/PRN famotidine 20 mg oral tablet (3 sources) Histamine-2 Receptor Antagonist Start: 09-08-2023 End: 09-07-2024 take 1 tablet by mouth in the morning famotidine (Pepcid) 20 MG tablet Indications: Mast cell activation syndrome (CMS/HCC) , Chronic idiopathic urticaria Take 1 tablet (20 mg) by mouth in the morning and 1 tablet (20 mg) before bedtime. 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 . Normal [facility] Comment on above: Result Comment: Performed at: WB Performed By: #### [id number] #### [facility] [address] [address] [address] Dawn Casey Age Gdln ACOG Testing 30-65 Normal [facility] Comment on above: Performed By: #### [id number] #### [facility] [address] [address] [address] Dawn Casey DIAGNOSIS: Comment [facility] Comment on above: Result Comment: NEGATIVE FOR INTRAEPITHE LIAL LESION OR MALIGNANCY. Performed at: WB Performed By: #### [id number] #### [facility] [address] [place] [address] Dr. Dawn Casey HPV Aptima Negative Normal Negative [facility] Comment on above: Result Comment: This nucleic acid amplif ication test detects fourteen high-risk HPV types (16,18,31,33,35,39,45,51,52,56,58,59,66,68) without differentiation. Performed at: =G Performed By: #### [id number] #### [facility] [address] [place] [address] Dr. Dawn Casey HPV Genotype Reflex Comment Normal [facility] Comment on above: Result Comment: Criteria not met, HPV Ge notype not performed. Performed at: WB Performed By: #### [id number] #### [facility] [address] [place] [address] Dr. Dawn Casey Methodology: Comment Normal [facility] Comment on above: Result Comment: This liquid based ThinPr ep(R) pap test was screened with the use of an image guided system. Performed at: WB Performed By: #### [id number] #### [facility] [address] [place] [address] Dr. Dawn Casey Note: Comment Normal [facility] Comment on above: Result Comment: The Pap smear is a scree yaw test designed to aid in the detection of premalignant and malignant conditions of the uterine cervix. It is not a diagnostic procedure and should not be used as the sole means of detecting cervical cancer. Both false-positive and false-negative reports do occur. . Performed at: WB Performed By: #### [id number] #### [facility] [address] [place] [address] Dr. Dawn Casey Performed by: Comment Normal [facility] Comment on above: Result Comment: [employer] nologist (ASCP) Performed at: WB Performed By: #### [id number] #### [facility] [address] [place] [address] Dr. Dawn Casey Specimen adequacy: Comment Normal [facility] Comment on above: Result Comment: Satisfactory for evaluat ion. Endocervical and/or squamous metaplastic cells (endocervical component) are present. Performed at: WB Performed By: #### [id number] #### [facility] [address] [place] [address] Dr. Dawn Casey Vital Signs Date Time Vital Sign Value Performing Clinician Facility 11-10-2023 14:41-0400 Body mass index (BMI) [Ratio] 28.17 kg/m2 Shante James MD Work Phone: [facility] 11-10-2023 14:41-0400 Body weight 72.12 kg Shante James MD Work Phone: [facility] 02-26-2023 10:20-0500 Body height 160.02 cm Brooke Mathew Other [facility] 02-26-2023 10:20-0500 Body mass index (BMI) [Ratio] 24.8 kg/m2 Brooke Mathew Other [facility] 02-26-2023 10:20-0500 Body temperature 97 [degF] Brooke Mathew Other [facility] 02-26-2023 10:20-0500 Body weight 63.5 kg Brooke Mathew Other [facility] 02-26-2023 10:20-0500 Respiratory rate 18 /min Brooke Mathew Other [facility] 02-26-2023 10:20-0500 SaO2% (BldA) [Mass fraction] 99 % Brooke Mathew Other [facility] Other Encounters Encounter Date Encounter Type Care Provider Facility Start: 11-10-2023 End: 11-10-2023 Office outpatient visit 15 minutes Shante James MD Work Phone: [facility] Comment on above: Chronic idiopathic u rticaria (Primary Dx); Mast cell activation syndrome (CMS/HCC) Start: 11-10-2023 End: 11-10-2023 ambulatory SHANTE JAMES Not Available Start: 11-10-2023 End: 11-10-2023 Teddy James MD Work Phone: [facility] Start: 11-10-2023 End: 11-10-2023 Bamboo flowsconcepción James MD Work Phone: [facility] Start: 09-08-2023 End: 09-08-2023 ambulatory SHANTE JAMES Not Available Start: 02-26-2023 End: 02-26-2023 ambulatory Brooke Mathew Other [facility] Start: 02-26-2023 Office outpatient vi sit 15 minutes Brooke Mathew [facility] Start: 06-10-2022 End: 06-10-[address] ISRRAEL PICKERING . Facility: Plan of Treatment Date Care Activity Detail Author Start: 05-08-2024 End: 05-08-2024 Patient encounter procedure 05/08/2024 3:20 PM EDT Office Visit [facility] [address] [place] [phone] Shante James MD [address] [place] [address] [facility] Start: 11-10-2023 End: 11-10-2023 Patient encounter procedure 11/10/2023 2:40 PM EDT Office Visit [facility] [address] [place] [phone] Shante James MD [address] [place] [address] Arrived [facility] Comment on above: Arrived Payers Date Payer Category Payer Private Health Insurance HA GAN [id number] 2020-Present [address] [place] [id number] 2020 Private Health Insurance [facility] [id number] 1991 Unknown [id number] 1991 Unknown [id number] 1991 Unknown [id number] 1958 Self-pay [id number] Social History Date Type Detail Facility Unknown if ever smoked [facility] Start: 09-08-2023 End: 11-10-2023 Sex Assigned At [facility] Other Start: 09-08-2023 Tobacco smoking status NHIS Never smoked tobacco [facility] Start: 09-08-2023 Tobacco use and exposure Smokeless tobacco non-user [facility] Start: 09-08-2023 End: 11-10-2023 History of Social function [facility] Start: 1990 Sex assigned at Not on file [facility] History of Present illness Narrative 11-10-2023 Shante James MD - 11/10/2023 2:40 PM EDT Note Date & Type Note Facility 11-10-2023 History of Presen t illness Narrative Effie Davis returns to the office today Follow-up for her episodes of urticaria. Her histamine release assay is negative NSR her thyroid peroxidase antibodies. She also has negative anti IgE auto antibodies. Serum total tryptase is 5.2 as drawn on October 14. Urticaria control test today is 14. She feels she is about 80% better with the high dose antihistamines. She also started some vitamins recently. N- methyl histamine is 115 (normal) urinary leukotriene E4 is 54 (also normal). EXAM The patient appears comfortable in the office today. Lungs are clear to auscultation bilaterally. The oral mucosa is pink and healthy without any lesions or ulcers. The palate elevates in the midline. The nasal mucosa is pink and healthy. There is no epistaxis mucopus or nasal polyposis noted. The nasal septum is approximately in the midline. The skin is clear of any lesions, excoriations, or erythema. IMPRESSION: follow-up PCP for TSH level check. Chronic idiopathic urticaria - Refill to [facility] in [place]. We agreed she will continue her high-dose antihistamine regimen and follow-up in 6 months or sooner should problems arise. We did agree that she will stop Pepcid. Emotional side effects of montelukast discussed. I provided reassurance that her laboratory studies for mast cell activation syndrome are entirely normal. documented in this encounter [facility] Healthcare Evaluation note 02-26-2023 Note Date & Type [...] understandig and is agreeable to treatment plan. [facility] Other Evaluation note Note Date & Type Note Facility Evaluation note Diagnosis Chronic idiopathic urticaria- Primary Idiopathic urticaria Mast cell activation syndrome (CMS/HCC) documented in this encounter [facility] Healthcare Summary Purpose Family History No Family History Records FoundNo Family History Records FoundNo Family History Records Found Advance Directives No Advanced Directives Records FoundNo Advanced Directives Records FoundNo Advanced Directives Records Found Additional Source Comments INFORMATION SOURCE (unrecogn ized section and content) DATE CREATED AUTHOR 06/18/2022 [facility] DATE CREATED AUTHOR AUTHOR'S ORGANIZ ATION 11/12/2023 [facility] EPIC DATE CREATED AUTHOR AUTHOR'S ORGANIZ ATION 12/21/2023 [facility] EPIC REASON FOR VISIT (unrecogniz ed section and content) Reason Comments Follow-up Pt here for follow u p on hives doing well FOR RECORDS PERTAINING TO PATIENTS WHO ARE [...] BE BASED ON THE PRIMARY CLINICAL RECORDS. [facility] [employer] provides no warranty or guarantee of the accuracy or completeness of information in this document.
[2024-08-08 18:09] LABS: Age Gdln ACOG Testing Note (.); HPV Aptima Negative (Negative); IGP, Aptima HPV, rfx 16/18,45 Note (.)
== END 2024-08-03 20:09 | disposition home or self-care (01) ==
LOC: LAB 20:08
PROVIDERS: PCP Family Medicine; Visit Provider Obstetrics & Gynecology
DX: Z01.419 Encounter for gynecological examination (general) (routine) without abnormal findings (principal)
CPT/HCPCS: 87624; 88175